=== PATIENT | female | born 1975 | race Caucasian/White ===

== ENCOUNTER 2016-11-27 00:10 | Emergency (ER) | payer OTHER ==
[~2016-11-27] VITALS: Ht 170.2 cm; Wt 68.2 kg
[2016-11-27 00:28] VITALS: BP 152/92; PULSE 91; RESP 16; O2SAT 100
== END 2016-11-27 01:11 | disposition left against medical advice (07) ==
LOC: SED 00:10
DX: Z53.21 Procedure and treatment not carried out due to patient leaving prior to being seen by health care provider (principal)